=== PATIENT | female | born 1980 | race Caucasian/White ===

== ENCOUNTER 2022-12-26 09:38 | Emergency (ER) | payer MEDICAID, SELFPAY ==
[2022-12-26 09:39] VITALS: BP 134/76; PULSE 89; RESP 16; TEMP 36.9; O2SAT 99; BMI 33.5
--- NOTE | 2022-12-26 09:45 | EXP.UTC ---
Discharge Plan Disposition Patient Disposition: Home, Self-Care Condition: Good Prescriptions Prescriptions: New azithromycin [Zithromax] 250 mg tablet 250 mg PO UD DOSE PK Qty: 6 0RF Rx Instructions: Take two (2) tablets today, then one (1) tablet days #2 thru #5 benzonatate [benzonatate] 100 mg capsule 100 mg PO TIDP PRN (Reason: Cough) Qty: 30 0RF prednisone 10 mg tablet 10 mg PO BID 3 Days Qty: 6 0RF Referrals Follow up/Referrals: Nicci Viera APRN [Primary Care Provider] - See instructions Activity Restrictions/Add. Instructions Additional Instructions/Restrictions: Drink plenty of fluids. Take tylenol or ibuprofen for pain or fever. Take the medications as directed. Follow up with your regular doctor. GO TO THE ER FOR ANY WORSENING SYMPTOMS Clinical Impressions Clinical Impression: Acute viral syndrome, Acute sinusitis Stand Alone Forms Stand Alone Forms: Work/School Release Instructions Patient Instructions: DI for Sinusitis Discharge ED Provider: Chiki Alvarez [facility] General Stated complaint: congestion, ear pain, sore throat Time Seen by Provider: 12/26/22 09:45 History of Present Illness Provider Complaint: She states that she started having sinus congestion, bilateral ear pain, sore throat, body aches and malaise last night. Related Data Previous Rx's Medication Instructions Recorded azithromycin 250 mg tablet 250 mg PO UD DOSE PK #6 tabs 12/26/22 (Zithromax) benzonatate 100 mg capsule 100 mg PO TIDP PRN Cough #30 caps 12/26/22 prednisone 10 mg tablet 10 mg PO BID 3 days #6 tabs 12/26/22 Allergies Allergy/AdvReac Type Severity Reaction Status Date / Time Penicillins Allergy Verified 12/26/22 09:54 [facility] Disclaimer: The information contained in this section may have been updated after the patient was seen, as this information can be updated by other users. Social History Smoking Status: Never smoker alcohol intake: never current occupational status: employed Travel in the last 8 weeks: None ROS Obtained: Yes All systems reviewed & no additional complaints except as documented Constitutional Constitutional: Reports body ache, Denies fever(s) and Reports poor appetite Eyes Eyes: Reports system reviewed and no additional complaints, except as documented ENT Ears, Nose, Mouth, and Throat: Reports as per HPI Cardiovascular Cardiovascular: Reports system reviewed and no additional complaints, except as documented and Denies chest pain Respiratory Respiratory: Denies shortness of breath, Denies chest congestion, Reports cough, Denies stridor and Denies wheezing Gastrointestinal Gastrointestingal: Reports system reviewed and no additional complaints, except as documented; Denies abdominal pain, diarrhea or vomiting Musculoskeletal Musculoskeletal: Reports system reviewed and no additional complaints, except as documented and Denies arthralgias Integumentary/Breasts Skin/Breast: Reports system reviewed and no additional complaints, except as documented and Denies rash Neurologic Neurologic: Denies paresthesias Allergic/Immunologic Allergic/Immunologic: Denies wheezing Physical Exam General General appearance: alert and in no apparent distress Eye Eye exam: Present normal appearance, PERRL and EOMI ENT ENT exam: Present mucous membranes moist and normal external ear exam Expanded ENT Exam External ear exam: Present normal external inspection TM/Canal exam: Bilateral TM: erythema and bulging Nose exam: Absent sinus tenderness Nasal speculum exam: Bilateral: normal Mouth exam: Present normal external inspection; Absent drooling Teeth exam: Present normal inspection Throat exam: Present tonsillar erythema and tonsillomegaly Neck Neck exam: Present normal inspection, full ROM and trachea midline; Absent tenderness, lymphadenopathy or thyromegaly Chest Chest inspection: Present normal inspection and symmetric chest wall ris
[2022-12-26 10:01] LABS: UTC Strep Screen (Rapid) Negative (Negative)
[2022-12-26 10:36] VITALS: BP 134/76; PULSE 89; RESP 16; TEMP 36.9; O2SAT 99
== END 2022-12-26 10:36 | disposition home or self-care (01) ==
PROVIDERS: Emergency Provider Nurse Practitioner Family; PCP Nurse Practitioner Family
DX: J01.90 Acute sinusitis, unspecified (principal); B34.9 Viral infection, unspecified; H92.03 Otalgia, bilateral; R53.81 Other malaise
CPT/HCPCS: 87880; 99204; 99212; G0463

== ENCOUNTER 2023-01-22 09:01 | Emergency (ER) | payer MEDICAID, SELFPAY ==
[2023-01-22 09:01] VITALS: BP 128/82; PULSE 72; RESP 18; TEMP 37; O2SAT 100; BMI 33.7
--- NOTE | 2023-01-22 10:06 | EXP.UTC ---
Discharge Plan Disposition Patient Disposition: Home, Self-Care Referrals Follow up/Referrals: Nicci Viera APRN [Primary Care Provider] - See instructions Activity Restrictions/Add. Instructions Additional Instructions/Restrictions: Drink plenty of fluids. Take tylenol or ibuprofen for pain or fever. Take the medications as directed. Follow up with your regular doctor. GO TO THE ER FOR ANY WORSENING SYMPTOMS Clinical Impressions Clinical Impression: Acute viral syndrome, Exposure to 2019 novel coronavirus Stand Alone Forms Stand Alone Forms: Work/School Release Instructions Patient Instructions: Coronavirus Disease 2019, Preventing the Spread of Coronavirus Discharge Instructions Discharge ED Provider: Chiki Alvarez [facility] General Stated complaint: congestion, covid exposure, runny nose, headache, Time Seen by Provider: 01/22/23 10:06 History of Present Illness Provider Complaint: She states that she has had malaise, body aches, chills, and sinus drainage for the past 1 day. She has been exposed to covid-19. Related Data Allergies Allergy/AdvReac Type Severity Reaction Status Date / Time Penicillins Allergy Verified 01/22/23 10:17 [facility] Disclaimer: The information contained in this section may have been updated after the patient was seen, as this information can be updated by other users. Social History (Updated 12/26/22 @ 10:36 by Chiki Alvarez APRN) Smoking Status: Never smoker alcohol intake: never current occupational status: employed Travel in the last 8 weeks: None ROS Obtained: Yes All systems reviewed & no additional complaints except as documented Constitutional Constitutional: Reports as per HPI Eyes Eyes: Reports system reviewed and no additional complaints, except as documented ENT Ears, Nose, Mouth, and Throat: Reports as per HPI Cardiovascular Cardiovascular: Reports system reviewed and no additional complaints, except as documented and Denies chest pain Respiratory Respiratory: Denies shortness of breath, Denies chest congestion, Reports cough, Denies stridor and Denies wheezing Gastrointestinal Gastrointestingal: Reports system reviewed and no additional complaints, except as documented; Denies abdominal pain, diarrhea or vomiting Musculoskeletal Musculoskeletal: Reports system reviewed and no additional complaints, except as documented and Denies arthralgias Integumentary/Breasts Skin/Breast: Reports system reviewed and no additional complaints, except as documented and Denies rash Neurologic Neurologic: Denies paresthesias Allergic/Immunologic Allergic/Immunologic: Denies wheezing Physical Exam General General appearance: alert and in no apparent distress Head Head exam: atraumatic, normocephalic and normal inspection Eye Eye exam: Present normal appearance, PERRL and EOMI ENT ENT exam: Present normal exam, normal oropharynx, mucous membranes moist, TM's normal bilaterally and normal external ear exam Neck Neck exam: Present normal inspection, full ROM and trachea midline; Absent meningismus or lymphadenopathy Chest Chest inspection: Present normal inspection and symmetric chest wall rise; Absent tenderness Respiratory Respiratory exam: Present normal lung sounds bilaterally; Absent respiratory distress Cardiovascular Cardiovascular exam: Present regular rate and normal rhythm; Absent JVD Abdominal Exam Abdominal exam: Present soft and normal bowel sounds; Absent distention, tenderness or guarding Extremities Exam Extremities exam: Present normal inspection, full ROM and normal capillary refill; Absent calf tenderness Back Exam Back exam: Present normal inspection; Absent tenderness Neurological Exam Neurological exam: Present alert and oriented X3 Psychiatric Psychiatric exam: Present normal affect and normal mood Skin Skin exam: Present warm, dry, intact and normal color Lymphatic Lymphatic Findings: no adenopathy Medical Decision Making Me
[2023-01-22 10:29] VITALS: BP 128/82; PULSE 72; RESP 12; TEMP 37; O2SAT 100
== END 2023-01-22 10:29 | disposition home or self-care (01) ==
PROVIDERS: Emergency Provider Nurse Practitioner Family; PCP Nurse Practitioner Family
DX: R09.81 Nasal congestion (principal); R53.81 Other malaise; R68.83 Chills (without fever); Z20.822 Contact with and (suspected) exposure to COVID-19
CPT/HCPCS: 99212; 99213; G0463

== ENCOUNTER 2023-04-15 12:23 | Emergency (ER) | payer MEDICAID, SELFPAY ==
[2023-04-15 13:20] VITALS: BP 133/85; PULSE 92; RESP 18; TEMP 36.8; O2SAT 99; BMI 35.5
--- NOTE | 2023-04-15 13:21 | EXP.UTC ---
Discharge Plan Disposition Patient Disposition: Home, Self-Care Condition: Good Prescriptions Prescriptions: New benzonatate [benzonatate] 100 mg capsule 100 mg PO TIDP PRN (Reason: Cough) Qty: 30 0RF methylprednisolone 4 mg Tablets,Dose Pack 4 mg PO DIRECTED Qty: 21 0RF cefdinir 300 mg capsule 300 mg PO BID Qty: 20 0RF No Action buprenorphine-naloxone 8-2 mg tablet, sublingual 1 tab SUBLINGUAL DAILY Referrals Follow up/Referrals: Shirin Barroso MD [Primary Care Provider] - See instructions Activity Restrictions/Add. Instructions Additional Instructions/Restrictions: Drink plenty of fluids. Take tylenol or ibuprofen for pain or fever. Take the medications as directed. Follow up with your regular doctor. GO TO THE ER FOR ANY WORSENING SYMPTOMS Clinical Impressions Clinical Impression: Otitis media, Acute viral syndrome, Pharyngitis Stand Alone Forms Stand Alone Forms: Work/School Release Instructions Patient Instructions: DI for Pharyngitis/Tonsillopharyngitis -- Adult, DI for Viral Syndrome Discharge ED Provider: Chiki Alvarez [facility] General Stated complaint: sore throat, sinus drainage, ear pain Time Seen by Provider: 04/15/23 13:21 History of Present Illness Provider Complaint: She states that for the past 2 days she has had sore throat, sinus congestion, ear pain, and low grade fever. 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 Social History Smoking Status: Never smoker alcohol intake: never current occupational status: employed Travel in the last 8 weeks: None ROS Obtained: Yes All systems reviewed & no additional complaints except as documented Constitutional Constitutional: Reports poor appetite Eyes Eyes: Reports system reviewed and no additional complaints, except as documented ENT Ears, Nose, Mouth, and Throat: Reports as per HPI Cardiovascular Cardiovascular: Reports system reviewed and no additional complaints, except as documented and Denies chest pain Respiratory Respiratory: Denies shortness of breath, Denies chest congestion, Reports cough, Denies stridor and Denies wheezing Gastrointestinal Gastrointestingal: Reports system reviewed and no additional complaints, except as documented; Denies abdominal pain, diarrhea or vomiting Musculoskeletal Musculoskeletal: Reports system reviewed and no additional complaints, except as documented and Denies arthralgias Integumentary/Breasts Skin/Breast: Reports system reviewed and no additional complaints, except as documented and Denies rash Neurologic Neurologic: Denies paresthesias Allergic/Immunologic Allergic/Immunologic: Denies wheezing Physical Exam General General appearance: alert and in no apparent distress Head Head exam: atraumatic, normocephalic and normal inspection Eye Eye exam: Present normal appearance, PERRL and EOMI ENT ENT exam: Present mucous membranes moist and normal external ear exam Expanded ENT Exam TM/Canal exam: Bilateral TM: erythema and bulging Nose exam: Absent sinus tenderness Mouth exam: Present normal external inspection; Absent drooling Teeth exam: Present normal inspection Throat exam: Present tonsillar erythema,
[2023-04-15 14:00] VITALS: BP 133/85; PULSE 92; RESP 18; TEMP 36.8; O2SAT 99
== END 2023-04-15 14:00 | disposition home or self-care (01) ==
PROVIDERS: Emergency Provider Nurse Practitioner Family; PCP Family Medicine
DX: U07.1 COVID-19 (principal); J02.9 Acute pharyngitis, unspecified; H66.93 Otitis media, unspecified, bilateral; R09.81 Nasal congestion; R50.9 Fever, unspecified
CPT/HCPCS: 87635; 87880; 99212; 99214; G0463

== ENCOUNTER 2023-05-30 14:39 | Emergency (ER) | payer OTHER, MEDICAID, SELFPAY ==
[2023-05-30 15:25] VITALS: BP 135/91; PULSE 73; RESP 21; TEMP 36.9; O2SAT 99; BMI 31.4
[2023-05-30 15:46] LABS: Apearance,Urine Clear (Clear); Color,Urine Yellow (Yellow)
[2023-05-30 15:47] LABS: Bilirubin,Urine Negative (Negative); Blood, Urine Trace (Negative); Glucose,Urine (UA) Negative (Negative); Ketones,Urine Negative (Negative); Protein,Urine Negative (Negative); UTC Leukocyte Esterase,Urine Negative (Negative); UTC Nitrate,Urine Negative (Negative); Urobilinogen,Urine 0.2 EU/dl (0.2)
[2023-05-30 16:01] VITALS: BP 135/91; PULSE 73; RESP 21; TEMP 36.9; O2SAT 99
--- NOTE | 2023-05-30 16:06 | ED_ITS ---
Discharge Plan Disposition Patient Disposition: Home, Self-Care Condition: Good Prescriptions Prescriptions: New methocarbamol 500 mg tablet 500 mg PO TID PRN (Reason: muscle spasm) Qty: 12 0RF ibuprofen [IBU] 800 mg tablet 800 mg PO TIDP PRN (Reason: Moderate Pain) Qty: 20 0RF No Action buprenorphine-naloxone 8-2 mg tablet, sublingual 1 tab SUBLINGUAL DAILY benzonatate [benzonatate] 100 mg capsule 100 mg PO TIDP PRN (Reason: Cough) Qty: 30 0RF methylprednisolone 4 mg Tablets,Dose Pack 4 mg PO DIRECTED Qty: 21 0RF cefdinir 300 mg capsule 300 mg PO BID Qty: 20 0RF Referrals Follow up/Referrals: Shirin Barroso MD [Primary Care Provider] - See instructions Activity Restrictions/Add. Instructions Additional Instructions/Restrictions: *Ibuprofen fer 8 hours with meal as needed for pain/inflammation *Not additional anti-inflammatory like motrin, aleve, advil with the above amount of ibuprofen. You can still take Tylenol every 4 hours as needed if you need something else for pain *Ice 20 minutes every 2 hours for the first 48 hours after the initial injury followed by moist heat every 20 minutes 3-4 times a day to affected area *Muscle relaxer every 8 hours as needed for muscle spasms but remember, it WILL cause drowsiness You cannot take it and drive, operate machinery or care for small children. *Keep this area active, no movement leads to more stiffness, However take it easy and avoid heavy lifting pushing or pulling *Follow up with you family doctor if no improvement for further treatment Clinical Impressions Clinical Impression: Low back pain Qualifiers: Chronicity: unspecified Back pain laterality: left Sciatica presence: without sciatica Qualified Code(s): M54.50 - Low back pain, unspecified Instructions Patient Instructions: DI for Low Back Pain, DI for Muscle Spasm Discharge ED Provider: Nan Sosa [facility] General Stated complaint: lower back pain Mode of Arrival: Ambulatory Source of Information: Patient Limitations: No Limitations Time Seen by Provider: 05/30/23 16:06 Description of Symptoms (Recalled from Triage Doc. by RN): PATIENT C/O LOWER BACK PAIN THAT STARTED YESTERDAY AND IS WORSE TODAY HEENT Symptoms (Recalled from RN notes): No Resp Symptoms (Recalled from RN notes): No Skin Symptoms (Recalled from RN notes): No MS Symptoms (Recalled from RN notes): Yes Functional Status (Recalled from RN notes): WNL History of Present Illness Provider Complaint: Pt states that she has a bad back and had surgery a few years ago and it has been doing better States that she is not sure if she may have slept wrong or what but she woke up yesterday with achy like feeling in her left lower back States today it was hurting worse and felt like it would spasm up on her and at times would radiate slightly up wanted to get her urine checked to make sure she doesnt have a UTI Denies loss of control of bowel or bladder 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 04/15/23 04/15/23 sublingual tablet Previous Rx's Medication Instructions Recorded benzonatate 100 mg capsule 100 mg PO TIDP PRN Cough #30 caps 04/15/23 cefdinir 300 mg capsule 300 mg PO BID #20 caps 04/15/23 methylprednisolone 4 mg tablets in 4 mg PO DIRECTED #21 tabs 04/15/23 a dose pack ibuprofen 800 mg tablet (IBU) 800 mg PO TIDP PRN Moderate Pain 05/30/23 #20 tabs methocarbamol 500 mg tablet 500 mg PO TID PRN muscle spasm #12 05/30/23 tabs Allergies Allergy/AdvReac Type Severity Reaction Status Date / Time Penicillins Allergy Verified 04/15/23 13:37 Worker's Comp Is this a Worker's Comp case?: No [facility] Disclaimer: The information contained in this section may have been updated after the patient was seen, as this information can be updated by other users. Medical History (Updated 05/30/23 @ 16:19 by Nan Sosa APRN) Back pain Migraine Urinary tract infection Surgical History History of tubal ligation Social History Smoking Status: Never smoker alcohol intake: never current occupational status: employed Travel in the last 8 weeks: None ROS Obtained: Yes All systems reviewed & no additional complaints except as documented and Yes Systems reviewed as appropriate & no additional complaints except as documented Constitutional Constitutional: Reports system reviewed and no additional complaints, except as documented and Reports as per HPI ENT Ears, Nose, Mouth, and Throat: Reports system reviewed and no additional complaints, except as documented and Reports as per HPI Cardiovascular Cardiovascular: Reports system reviewed and no additional complaints, except as documented and Reports as per HPI Respiratory Respiratory: Reports system reviewed and no additional complaints, except as documented and Reports as per HPI Gastrointestinal Gastrointestingal: Reports system reviewed and no additional complaints, except as documented and as per HPI; Denies abdominal pain Musculoskeletal Musculoskeletal: Reports system reviewed and no additional complaints, except as documented, Reports as per HPI and Reports back pain Physical Exam General General appearance: alert and in no apparent distress ENT ENT exam: Present mucous membranes moist Chest Chest inspection: Present normal inspection and symmetric chest wall rise Respiratory Respiratory exam: Present normal lung sounds bilaterally; Absent respiratory distress or wheezes Cardiovascular Cardiovascular exam: Present regular rate, normal rhythm and normal heart sounds Abdominal Exam Abdominal exam: Present soft and normal bowel sounds; Absent distention or tenderness Back Exam Back exam: Present tenderness and muscle spasm Back 1 view image: 1. reports achy spasm like pain that comes and goes since yesterday denies known injury Denies radiation of pain and denies loss of control of bowel or bladder Neurological Exam Neurological exam: Present alert and oriented X3 Medical Decision Making Geoffrey Inquiry Pt receiving controlled substance: No Geoffrey was queried for this patient: No Vital Signs: 05/30/23 15:25 05/30/23 16:01 Temperature 98.4 F 98.4 F Temperature Source Oral Pulse Rate 73 Pulse Rate [Left Brachial] 73 Respiratory Rate 21 21 Blood Pressure 135/91 H Blood Pressure [Left Arm] 135/91 H Blood Pressure Mean [Left Arm] 105 Blood Pressure Source [Left Arm] Automatic Cuff Blood Pressure Position [Left Arm] Sitting 02 Sat by Pulse Oximetry 99 Oxygen Delivery Method Room Air Lab Data Lab results reviewed: Yes I reviewed the patient's lab results. Lab Results 05/30/23 15:38: Urine Color Yellow, Urine Appearance Clear, Urine pH 7.0, Ur Specific [place] 1.020, Urine Protein Negative, Urine Glucose (UA) Negative, Urine Ketones Negative, Urine Blood Trace, Urine Nitrate Negative, Urine Bilirubin Negative, Urine Urobilinogen 0.2, Ur Leukocyte Esterase Negative
[2023-05-30 16:10] LABS: UTC Pregnancy Test, Urine Negative (Negative)
== END 2023-05-30 16:27 | disposition home or self-care (01) ==
PROVIDERS: Emergency Provider Nurse Practitioner; PCP Family Medicine
DX: M54.50 Low back pain, unspecified (principal)
CPT/HCPCS: 81003; 81025; 99212; 99214; G0463

== ENCOUNTER 2023-07-06 08:37 | Emergency (ER) | payer OTHER, MEDICAID, SELFPAY ==
[2023-07-06 08:40] VITALS: BP 139/104; PULSE 99; RESP 16; TEMP 36.6; O2SAT 98; BMI 36.9
--- NOTE | 2023-07-06 08:40 | ED_ITS ---
Discharge Plan Disposition Patient Disposition: Home, Self-Care Chief Complaint: Seizure Prescriptions Prescriptions: No Action buprenorphine-naloxone 8-2 mg tablet, sublingual 1 tab SUBLINGUAL DAILY benzonatate [benzonatate] 100 mg capsule 100 mg PO TIDP PRN (Reason: Cough) Qty: 30 0RF methylprednisolone 4 mg Tablets,Dose Pack 4 mg PO DIRECTED Qty: 21 0RF cefdinir 300 mg capsule 300 mg PO BID Qty: 20 0RF methocarbamol 500 mg tablet 500 mg PO TID PRN (Reason: muscle spasm) Qty: 12 0RF ibuprofen [IBU] 800 mg tablet 800 mg PO TIDP PRN (Reason: Moderate Pain) Qty: 20 0RF Activity Restrictions/Add. Instructions Additional Instructions/Restrictions: At this time it was felt you are safe to be discharged home. If new or worsening symptoms please do not hesitate to return the emergency department. Do not drive for the next 90 days per [facility] guidelines. Please do not put yourself in a situation where having a seizure would be dangerous such as being at high heights, swimming alone, taking a bath alone. Clinical Impressions Clinical Impression: Migraine, Seizure-like activity Instructions Patient Instructions: DI for Seizure Disorder -- Adult, DI for Seizure (Not Epilepsy/Seizure Disorder) Discharge ED Provider: Killian Fonseca General Adult HPI General Chief complaint: Seizure Stated complaint: Seizure Time Seen by Provider: 07/06/23 08:39 History of Present Illness HPI narrative: Patient is a 42-year-old female with past medical history of migraines with a ssociated seizures previously on Topamax who presents to the emergency department for evaluation of seizure-like activity. 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 She took an Imitrex, lowered herself to the ground and had less than 1 minute of generalized tonic-clonic activity, not interactive with the environment, eyes closed per staff report. Since then patient has been slow to arouse however he is conversational. No trauma was sustained. Right now patient states she is having a right-sided headache consistent with her baseline migraines. Her baseline is variable with the occurrences per year, the last one she had of these was approximately 9 months ago. No other acute complaints at this time. 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 04/15/23 04/15/23 sublingual tablet Previous Rx's Medication Instructions Recorded benzonatate 100 mg capsule 100 mg PO TIDP PRN Cough #30 caps 04/15/23 cefdinir 300 mg capsule 300 mg PO BID #20 caps 04/15/23 methylprednisolone 4 mg tablets in 4 mg PO DIRECTED #21 tabs 04/15/23 a dose pack ibuprofen 800 mg tablet (IBU) 800 mg PO TIDP PRN Moderate Pain 05/30/23 #20 tabs methocarbamol 500 mg tablet 500 mg PO TID PRN muscle spasm #12 05/30/23 tabs Allergies Allergy/AdvReac Type Severity Reaction Status Date / Time Penicillins Allergy Verified 07/06/23 08:55 topiramate [From Topamax] Allergy Verified 07/06/23 08:55 [facility] Disclaimer: The information contained in this section may have been updated after the patient was seen, as this information can be updated by other users. Medical History (Updated 07/06/23 @ 09:24 by Killian Fonseca MD) Back pain Migraine Urinary tract infection Surgical History History of tubal ligation Social History Smoking Status: Current every day smoker alcohol intake: never current occupational status: employed Travel in the last 8 weeks: None ROS Obtained: Yes Systems reviewed as appropriate & no additional complaints except as documented Physical Exam General General appearance: alert and other (Tearful) Head Head exam: atraumatic and normocephalic Eye Eye exam: Present PERRL, EOMI and other (Photophobia) ENT ENT exam: Present mucous membranes moist Neck Neck exam: Present normal inspection Chest Chest inspection: Present normal inspection and symmetric chest wall rise Respiratory Respiratory exam: Present normal lung sounds bilaterally; Absent respiratory distress Cardiovascular Cardiovascular exam: Present regular rate and normal rhythm Abdominal Exam Abdominal exam: Present soft; Absent tenderness Extremities Exam Extremities exam: Present normal inspection Neurological Exam Neurological exam: Present alert and CN II-XII intact; Absent motor sensory deficit Psychiatric Psychiatric exam: Present normal affect Skin Skin exam: Present warm and dry Medical Decision Making Geoffrey Inquiry Pt receiving controlled substance: No Vital Signs: 07/06/23 08:40 Temperature 98 F Temperature Source Oral Pulse Rate [Right] 99 H Respiratory Rate 16 Blood Pressure [Right Arm] 139/104 H Blood Pressure Mean [Right Arm] 115 02 Sat by Pulse Oximetry 98 Oxygen Delivery Method Room Air Lab Data Lab Results 07/06/23 08:35: WBC 6.4, RBC 4.46, Hgb 14.4, Hct 40.9, MCV 91.9, MCH 32.3 H, MCHC 35.2, RDW 12.9, Plt Count 280, MPV 7.6, Neut % (Auto) 41.3, Lymph % (Auto) 49.5, [place] % (Auto) 4.4, Eos % (Auto) 4.0, Baso % (Auto) 0.8, Neut # (Auto) 2.7, Lymph # (Auto) 3.2, [place] # (Auto) 0.3, Eos # (Auto) 0.3, Baso # (Auto) 0.1, Sodium 136, Potassium 3.7, Chloride 105, Carbon Dioxide 33 H, Anion Gap 1.7 L, BUN 12, Creatinine 1.10 H, Estimated Creat Clear 92, Estimated GFR 55 L, Est GFR ( Amer) 67, Glucose 106 H, Calcium 8.5, Magnesium 2.0, Total Bilirubin 0.3, AST 33, ALT 25, Alkaline Phosphatase 74, Total Protein 6.4, Albumin 3.6, Globulin 2.8, Albumin/Globulin Ratio 1.3, Serum HCG, Qual Negative 07/06/23 08:35 07/06/23 08:35 Orders (Tests/Meds): ED MEDICATIONS Generic Name Dose Route Start Last Admin Trade Name Freq PRN Reason Stop Dose Admin Lactated Ringer's 1,000 mls @ 999 mls/hr 07/06/23 08:39 07/06/23 08:56 Lactated Ringer's 1000 Ml Bag IV 07/06/23 09:39 999 mls/hr .Q1H1M ONE Administration Discontinued Medications Generic Name Dose Route Start Last Admin Trade Name Freq PRN Reason Stop Dose Admin Acetaminophen 1,000 mg 07/06/23 08:39 07/06/23 08:55 Acetaminophen 1,000mg/100ml Vial IV 07/06/23 08:40 1,000 mg ONCE ONE Administration Diphenhydramine HCl 25 mg 07/06/23 08:39 07/06/23 08:55 Diphenhydramine 50mg/Ml Vial IV 07/06/23 08:40 25 mg ONCE ONE Administration Prochlorperazine Edisylate 5 mg 07/06/23 08:39 07/06/23 08:55 Prochlorperazine 10mg/2ml Vial IV 07/06/23 08:40 5 mg ONCE ONE Administration ORDERS Category Date Time Status CBC w/Auto Diff [Complete Blood Count Auto Diff] Stat Lab 07/06/23 08:35 Completed CMP [Comprehensive Metabolic Panel] Stat Lab 07/06/23 08:35 Completed HCG Qualitative, Serum Stat Lab 07/06/23 08:35 Completed MG [Magnesium] Stat Lab 07/06/23 08:35 Completed EKG Request [ECG Request] Stat Y 07/06/23 08:39 Ordered ECG Data Tracing #1: Independently interpreted by me, rate is 84, rhythm is regular, axis is normal, no ST elevation in anatomical contiguous leads, QTc 392, no high degree AV block, no delta wave. Medical Decision Narrative: In summary patient is a 42-year-old female past medical history described above presents emergency department for evaluation of seizure-like activity. Patient is hemodynamically stable and nontoxic-appearing upon arrival, afebrile with a nonfocal neurologic exam. Patient does have a right-sided headache and photophobia consistent with her baseline migraines. Differential diagnosis includes complex migraine, seizure, syncope with myoclonic jerks, among others. Workup will be conducted with hematologic labs, hCG, EKG. Initial interventions include crystalloid bolus, Compazine, diphenhydramine, IV Tylenol. Intracranial imaging was considered however given that these are consistent with patient's baseline seizure-like activity associated with migraine head no dynamic changes with a nonfocal neurologic exam currently will be deferred. Workup reviewed by me, hematologic labs are nonactionable. Upon repeat evaluation patient had significant improvement of headache, persistent nonfocal neurologic exam. Given this patient is appropriate for discharge at this time. Critical Care Critical Care Time Critical Care Time: No
--- NOTE | 2023-07-06 08:40 | ECG_ITS ---
APPROVED REPORT Exam: Resting ECG HR:84 bpm ECG Measurements Heart Rate 84 AXES VT 153 P 66 QRSd 88 QRS 81 QT 352 T 12 QTc 392 Conclusion SINUS RHYTHM MINIMAL ST DEPRESSION [0.025+ mV ST DEPRESSION] BORDERLINE ECG UNCONFIRMED REPORT Electronically signed by : Mauri Palomo MD 07/07/2023 07:48:01
[2023-07-06 08:52] LABS: Chloride 105 mmol/L (98-107)
[2023-07-06 08:53] VITALS: BP 153/99; PULSE 88; O2SAT 100
[2023-07-06 08:53] LABS: Basophils # 0.1 K/mm3 (0-0.2); Basophils % 0.8 % (0.1-2.0); Eosinophils # 0.3 K/mm3 (0.0-0.4); Hematocrit 40.9 % (37.0-47.0); Hemoglobin 14.4 g/dL (12.2-16.2); Lymphocytes # 3.2 K/mm3 (0.7-4.5); Lymphocytes % 49.5 % (10-50); Mean Corpuscular HGB Conc 35.2 g/dL (31.8-35.4); Mean Corpuscular Hemoglobin 32.3 pg (27.0-31.2); Mean Corpuscular Volume 91.9 fl (81-99); Mean Platelet Volume 7.6 fl (7.4-10.4); Monocytes # 0.3 K/mm3 (0.1-1.0); Monocytes % 4.4 % (1.7-9.3); Neutrophils # 2.7 K/mm3 (1.8-7.8); Neutrophils % 41.3 % (37.0-80.0); Platelet Count 280 K/mm3 (142-424); Potassium 3.7 mmoL/L (3.5-5.1); Red Blood Count 4.46 M/mm3 (4.20-5.40); Red Cell Distribution Width 12.9 % (11.5-17.5); Sodium 136 mmol/L (136-145); White Blood Count 6.4 K/mm3 (4.8-10.8)
[2023-07-06 08:55] LABS: Alanine Aminotransferase 25 U/L (12-78); Alkaline Phosphatase 74 U/L (38-126); Anion Gap 1.7 mEq/L (5-15); Aspartate Amino Transferase 33 U/L (14-36); Bilirubin,Total 0.3 mg/dl (0.2-1.3); Blood Urea Nitrogen 12 mg/dl (7-17); Carbon Dioxide 33 mmol/L (22.0-30.0); Creatinine Clearance Estimated 92 mL/min (50-200); Estimated Glomerular Filt Rate 55 ml/min (>60); GFR (African American) 67 ML/MIN (>60)
[2023-07-06] MEDS: PROCHLORPERAZINE 10MG/2ML VIAL 5 MG IV (08:55)
[2023-07-06] MEDS: diphenhydrAMINE 50MG/ML VIAL 25 MG IV (08:55)
[2023-07-06] MEDS: ACETAMINOPHEN 1,000MG/100ML VIAL 1000 MG IV (08:55)
[2023-07-06 08:56] LABS: Albumin Level 3.6 g/dl (3.5-5.0); Albumin/Globulin Ratio 1.3 (1.1-1.8); Calcium 8.5 mg/dl (8.4-10.2); Globulin 2.8 g/dL (1.3-3.2); Glucose 106 mg/dl (74-100); Total Protein,Serum 6.4 g/dl (6.3-8.2)
[2023-07-06] MEDS: LACTATED RINGERS 1000ML 1,000 ML 999 ML IV (08:56)
[2023-07-06 09:00] VITALS: BP 131/91; PULSE 79; O2SAT 100
[2023-07-06 09:07] LABS: HCG Qualitative, Serum Negative (Negative)
[2023-07-06 09:20] VITALS: BP 154/96; PULSE 65; O2SAT 100
--- NOTE | 2023-07-06 09:21 | PC.NURSE ---
pt H/A feeling much better fluids infusing
--- NOTE | 2023-07-06 09:30 | PC.NURSE ---
pt is finding a ride home
--- NOTE | 2023-07-06 09:43 | PC.NURSE ---
When rounding on the pt, her IV fluids were finished. Pt states she is feeling better. pt has no new complaints at this time.
[2023-07-06 09:57] VITALS: BP 148/96; PULSE 66; RESP 16; TEMP 36.6
== END 2023-07-06 09:58 | disposition home or self-care (01) ==
PROVIDERS: Emergency Provider Emergency Medicine; PCP Family Medicine
DX: G43.909 Migraine, unspecified, not intractable, without status migrainosus (principal); R56.9 Unspecified convulsions; F17.210 Nicotine dependence, cigarettes, uncomplicated
CPT/HCPCS: 80053; 83735; 84703; 85025; 93005; 96361; 96374; 96375; 99285; J0131

== ENCOUNTER 2024-02-15 13:08 | Emergency (ER) | payer OTHER, MEDICAID, SELFPAY ==
[2024-02-15 14:02] VITALS: BP 125/84; PULSE 84; RESP 20; TEMP 36.6; O2SAT 100; BMI 37.0
[2024-02-15 14:36] LABS: Microscopic, Urine URINE MICROSCOPIC (MICROSCOPIC)
[2024-02-15 14:38] LABS: Appearance,Urine CLEAR (Clear); Bilirubin,Urine Negative (Negative); Blood, Urine Negative (Negative); Color,Urine YELLOW (Yellow); Glucose,Urine (UA) Negative (Negative); Ketones,Urine Negative (Negative); Leukocyte Esterase,Urine Negative (Negative); Nitrate,Urine Negative (Negative); Protein,Urine Negative (Negative); Specific Gravity, Urine 1.025 (1.005-1.030); Urobilinogen,Urine 0.2 EU/dl (0.2)
[2024-02-15 14:47] LABS: Bacteria,Urine Trace /lpf; Squamous Epithelial Cell,Urine Occasional #/hpf (0-5); WBC,Urine Occasional #/hpf (0-3)
--- NOTE | 2024-02-15 14:52 | ED_ITS ---
Discharge Plan Disposition Patient Disposition: Home, Self-Care Condition: Good Prescriptions Prescriptions: New ciprofloxacin HCl [Cipro] 500 mg tablet 500 mg PO BID 5 Days Qty: 10 0RF No Action buprenorphine-naloxone 8-2 mg tablet, sublingual 1 tab SUBLINGUAL DAILY benzonatate [benzonatate] 100 mg capsule 100 mg PO TIDP PRN (Reason: Cough) Qty: 30 0RF methylprednisolone 4 mg Tablets,Dose Pack 4 mg PO DIRECTED Qty: 21 0RF cefdinir 300 mg capsule 300 mg PO BID Qty: 20 0RF methocarbamol 500 mg tablet 500 mg PO TID PRN (Reason: muscle spasm) Qty: 12 0RF ibuprofen [IBU] 800 mg tablet 800 mg PO TIDP PRN (Reason: Moderate Pain) Qty: 20 0RF Referrals Follow up/Referrals: Provider,Referral, MD [Primary Care Provider] - See instructions Clinical Impressions Clinical Impression: UTI (urinary tract infection) Qualifiers: Urinary tract infection type: acute cystitis Hematuria presence: without hematuria Qualified Code(s): N30.00 - Acute cystitis without hematuria Instructions Patient Instructions: DI for Urinary Tract Infection (UTI) Print Language Print Language: Yakut Discharge ED Provider: Ina Martinez [facility] [place] HPI General Stated complaint: left side pain, body aches and chills Mode of Arrival: Ambulatory Source of Information: Patient Limitations: No Limitations Time Seen by Provider: 02/15/24 14:44 Description of Symptoms (Recalled from Triage Doc. by RN): Reports pain on the left side of her back, lower stomach pain and body aches. HEENT Symptoms (Recalled from RN notes): No Resp Symptoms (Recalled from RN notes): No Skin Symptoms (Recalled from RN notes): No MS Symptoms (Recalled from RN notes): No Functional Status (Recalled from RN notes): wnl History of Present Illness Provider Complaint: Pt complains of occasional burning with urination, left flank pain, lower abdominal pain, and body aches. Pt states that the left flank pain started a couple weeks ago and her burning and belly pain started yesterday. She denies taking anything for her symptoms. 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 04/15/23 04/15/23 sublingual tablet Previous Rx's ?Medication ?Instructions ?Recorded benzonatate 100 mg capsule 100 mg PO TIDP PRN Cough #30 caps 04/15/23 cefdinir 300 mg capsule 300 mg PO BID #20 caps 04/15/23 methylprednisolone 4 mg tablets in 4 mg PO DIRECTED #21 tabs 04/15/23 a dose pack ibuprofen 800 mg tablet (IBU) 800 mg PO TIDP PRN Moderate Pain 05/30/23 #20 tabs methocarbamol 500 mg tablet 500 mg PO TID PRN muscle spasm #12 05/30/23 tabs ciprofloxacin HCl 500 mg tablet 500 mg PO BID 5 days #10 tabs 02/15/24 (Cipro) Allergies Allergy/AdvReac Type Severity Reaction Status Date / Time Penicillins Allergy Verified 07/06/23 08:55 topiramate [From Topamax] Allergy Verified 07/06/23 08:55 Worker's Comp Is this a Worker's Comp case?: No [facility] Disclaimer: The information contained in this section may have been updated after the patient was seen, as this information can be updated by other users. Medical History (Updated 02/15/24 @ 15:03 by Ina Martinez APRN) Back pain Urinary tract infection Migraine Surgical History History of tubal ligation Social History Smoking Status: Current every day smoker alcohol intake: never current occupational status: employed Travel in the last 8 weeks: None ROS Obtained: Yes All systems reviewed & no additional complaints except as documented Constitutional Constitutional: Reports system reviewed and no additional complaints, except as documented, Reports body ache, Reports chills and Reports malaise Eyes Eyes: Reports system reviewed and no additional complaints, except as documented ENT Ears, Nose, Mouth, and Throat: Reports system reviewed and no additional complaints, except as documented Cardiovascular Cardiovascular: Reports system reviewed and no additional complaints, except as documented Respiratory Respiratory: Reports system reviewed and no additional complaints, except as documented Gastrointestinal Gastrointestingal: Reports system reviewed and no additional complaints, except as documented Genitourinary Female Genitourinary: Reports system reviewed and no additional complaints, except as documented, Reports dysuria, Reports flank pain and Reports urinary frequency Musculoskeletal Musculoskeletal: Reports system reviewed and no additional complaints, except as documented Integumentary/Breasts Skin/Breast: Reports system reviewed and no additional complaints, except as documented Neurologic Neurologic: Reports system reviewed and no additional complaints, except as documented Endocrine Endocrine: Reports system reviewed and no additional complaints, except as documented Hematologic/Lymphatic Henatologic/Lymphatic: Reports system reviewed and no additional complaints, except as documented Allergic/Immunologic Allergic/Immunologic: Reports system reviewed and no additional complaints, except as documented Physical Exam General General appearance: alert and in no apparent distress Head Head exam: atraumatic and normocephalic Eye Eye exam: Present normal appearance ENT ENT exam: Present normal exam and mucous membranes moist Neck Neck exam: Present normal inspection; Absent lymphadenopathy Chest Chest inspection: Present normal inspection and symmetric chest wall rise Respiratory Respiratory exam: Present normal lung sounds bilaterally Cardiovascular Cardiovascular exam: Present regular rate, normal rhythm and normal heart sounds Abdominal Exam Abdominal exam: Present tenderness Abdominal tenderness: Present suprapubic Extremities Exam Extremities exam: Present normal inspection Back Exam Back exam: Present CVA tenderness (L); Absent CVA tenderness (R) Neurological Exam Neurological exam: Present alert and oriented X3 Psychiatric Psychiatric exam: Present normal affect and normal mood Skin Skin exam: Present warm, dry and intact Lymphatic Lymphatic Findings: no adenopathy Medical Decision Making Medical Records Screening: Per USPSTF and CDC recommendations, given the prevalence of disease in our region, it is our hospital?s policy to screen for HIV and viral Hepatitis for all patients aged 18 and over and those with ongoing risk factors. Geoffrey Inquiry Pt receiving controlled substance: No Geoffrey was queried for this patient: No Vital Signs: 02/15/24 14:02 Temperature 97.9 F Temperature Source Oral Pulse Rate [Radial] 84 Respiratory Rate 20 Blood Pressure [Right Arm] 125/84 Blood Pressure Mean [Right Arm] 97 Blood Pressure Source [Right Arm] Automatic Cuff Blood Pressure Position [Right Arm] Sitting 02 Sat by Pulse Oximetry 100 Oxygen Delivery Method Room Air Lab Data Lab Results 02/15/24 14:00: Urine Color Yellow, Urine Appearance Clear, Urine pH 7.0, Ur Specific [place] 1.025, Urine Protein Negative, Urine Glucose (UA) Negative, Urine Ketones Negative, Urine Blood Negative, Urine Nitrate Negative, Urine Bilirubin Negative, Urine Urobilinogen 0.2, Ur Leukocyte Esterase Negative, Urine RBC None, Urine WBC Occasional, Ur Squamous Epith Cells Occasional, Urine Bacteria Trace Orders (Tests/Meds): ORDERS Category Date Time Status UA [Urinalysis and Microscopic] Stat Lab 02/15/24 14:00 Completed
[2024-02-15 15:10] VITALS: BP 125/84; PULSE 84; RESP 20; TEMP 36.6; O2SAT 100
== END 2024-02-15 15:10 | disposition home or self-care (01) ==
PROVIDERS: Emergency Provider Nurse Practitioner Family
DX: N39.0 Urinary tract infection, site not specified (principal); M54.59 Other low back pain; R10.32 Left lower quadrant pain; R30.0 Dysuria
CPT/HCPCS: 81001; 99212; 99214; G0463

== ENCOUNTER 2024-05-04 15:07 | Emergency (ER) | payer OTHER, SELFPAY ==
[2024-05-04 15:20] VITALS: BP 106/72; PULSE 84; RESP 18; TEMP 36.7; O2SAT 98; BMI 35.2
--- NOTE | 2024-05-04 15:32 | ED_ITS ---
Discharge Plan Disposition Patient Disposition: Home, Self-Care Condition: Good Prescriptions Prescriptions: New ondansetron 4 mg tablet,disintegrating 4 mg PO Q8H PRN (Reason: nausea and vomiting) Qty: 10 0RF Referrals Follow up/Referrals: Provider,Referral, MD [Primary Care Provider] - See instructions Activity Restrictions/Add. Instructions Additional Instructions/Restrictions: Drink extra fluids with and between meals. If you have difficulty drinking, try very small amounts of water or suck on ice chips. ? Avoid fruit juices, as these do not replace minerals and can actually increase diarrhea. ? Children and adults can use sports drinks to replenish electrolytes. Younger children and infants should use products formulated for children, like oral rehydration solutions. ? Eat food in small amounts and let your stomach recover. ? Get lots of rest. You may feel tired or weak. ? No greasy or fried foods for the next 24-48 hours BRAT diet Bananas Rice Apples and [place] ? Make sure to drink plenty of liquids ? Return if needed ? Straight to ER if any life threatening symptoms ? Zofran as prescribed ? Follow up with family doctor in the next 48-72 hours if no improvement or any worsening of symptoms Clinical Impressions Clinical Impression: Nausea & vomiting Stand Alone Forms Stand Alone Forms: Work/School Release Instructions Patient Instructions: Nausea and Vomiting-Adult, Ondansetron Print Language Print Language: [place] Discharge ED Provider: Nan Sosa [facility] [place] HPI General Stated complaint: fever, vomiting, AVENDANO Mode of Arrival: Ambulatory Source of Information: Patient Limitations: No Limitations Time Seen by Provider: 05/04/24 15:35 Description of Symptoms (Recalled from Triage Doc. by RN): PATIENT C/O VOMITING, HEADACHE, BODY ACHES, AND WEAKNESS THAT STARTED THIS MORNING HEENT Symptoms (Recalled from RN notes): Yes Resp Symptoms (Recalled from RN notes): No Skin Symptoms (Recalled from RN notes): No MS Symptoms (Recalled from RN notes): No Functional Status (Recalled from RN notes): WNL History of Present Illness Provider Complaint: Patient states that she started feeling bad this morning States that she has been having N/V body aches, chills and low grade fever States this evening she isnt feeling any better so she came in to get checked Related Data Previous Rx's ?Medication ?Instructions ?Recorded ondansetron 4 mg disintegrating 4 mg PO Q8H PRN nausea and 05/04/24 tablet vomiting #10 tabs Allergies Allergy/AdvReac Type Severity Reaction Status Date / Time Penicillins Allergy Verified 07/06/23 08:55 topiramate (From Topamax) Allergy Verified 07/06/23 08:55 Worker's Comp Is this a Worker's Comp case?: No [facility] Disclaimer: The information contained in this section may have been updated after the patient was seen, as this information can be updated by other users. Medical History (Updated 05/04/24 @ 15:48 by Nan Sosa APRN) Back pain Urinary tract infection Migraine Surgical History History of tubal ligation Social History Smoking Status: Current every day smoker alcohol intake: never current occupational status: employed Travel in the last 8 weeks: None Have you lived/traveled outside [place] in past 30 days?: No Contact w/someone who lives/traveled outside US past 30 days?: No Exposure to someone with infectious disease in past 14 days?: No Do you have a fever (greater than 100.4 F or 38 C)?: No Have you tested positive for COVID-19: No Exposed to someone with COVID-19 in past 14 days?: No Do you have a sore throat?: No Do you have a cough?: No Do you have any weakness?: No Do you have any diarrhea?: No Are you experiencing any unusual bleeding?: No Do you have any muscle aches/pain?: No Do you have any abdominal pain?: No Are you experiencing loss of taste or smell?: No ROS Obtained: Yes All systems reviewed & no additional complaints except as documented and Yes Systems reviewed as appropriate & no additional complaints except as documented Constitutional Constitutional: Reports system reviewed and no additional complaints, except as documented, Reports as per HPI, Reports body ache, Reports chills, Reports fever(s) and Reports headache(s) ENT Ears, Nose, Mouth, and Throat: Reports system reviewed and no additional complaints, except as documented, Reports as per HPI and Reports headache(s) Cardiovascular Cardiovascular: Reports system reviewed and no additional complaints, except as documented and Reports as per HPI Respiratory Respiratory: Reports system reviewed and no additional complaints, except as documented and Reports as per HPI Gastrointestinal Gastrointestingal: Reports system reviewed and no additional complaints, except as documented, as per HPI, nausea and vomiting; Denies abdominal pain Genitourinary Female Genitourinary: Reports system reviewed and no additional complaints, except as documented and Reports as per HPI Neurologic Neurologic: Reports headache(s) Physical Exam General General appearance: alert and in no apparent distress ENT ENT exam: Present mucous membranes moist Respiratory Respiratory exam: Present normal lung sounds bilaterally; Absent respiratory distress or wheezes Cardiovascular Cardiovascular exam: Present regular rate, normal rhythm and normal heart sounds Abdominal Exam Abdominal exam: Present soft and normal bowel sounds; Absent distention or tenderness Neurological Exam Neurological exam: Present alert, oriented X3 and normal gait Medical Decision Making Medical Records Screening: Per USPSTF and CDC recommendations, given the prevalence of disease in our region, it is our hospital?s policy to screen for HIV and viral Hepatitis for all patients aged 18 and over and those with ongoing risk factors. Geoffrey Inquiry Pt receiving controlled substance: No Geoffrey was queried for this patient: No Vital Signs: 05/04/24 15:20 Temperature 98.0 F Temperature Source Oral Pulse Rate [Left Brachial] 84 Respiratory Rate 18 Blood Pressure [Left Arm] 106/72 L Blood Pressure Mean [Left Arm] 83 Blood Pressure Source [Left Arm] Automatic Cuff Blood Pressure Position [Left Arm] Sitting 02 Sat by Pulse Oximetry 98 Oxygen Delivery Method Room Air Lab Data Lab results reviewed: Yes I reviewed the patient's lab results.
[2024-05-04 15:49] VITALS: BP 106/72; PULSE 84; RESP 18; TEMP 36.7; O2SAT 98
[2024-05-04 15:51] LABS: UTC Influenza A Antigen Negative (Negative); UTC Influenza B Antigen Negative (Negative); UTC Strep Screen (Rapid) Negative (Negative)
--- NOTE | 2024-05-08 10:32 | PC.NURSE ---
Wolf COREY APRN REVIEWED PATIENT'S POSITIVE STREP CONFIRMATION AND SENT IN CEFDINIR. PATIENT NOTIFIED OF ANTIBIOTIC BY Wolf COREY APRN AT THIS TIME
== END 2024-05-04 15:55 | disposition home or self-care (01) ==
PROVIDERS: Emergency Provider Nurse Practitioner
DX: R11.2 Nausea with vomiting, unspecified (principal)
CPT/HCPCS: 87804; 87880; 99213; G0381

== ENCOUNTER 2024-07-14 12:46 | Emergency (ER) | payer OTHER, SELFPAY ==
[2024-07-14 12:47] VITALS: BP 135/82; PULSE 87; RESP 16; TEMP 37; O2SAT 97; BMI 37.5
[2024-07-14 12:50] VITALS: BP 135/82; PULSE 90; O2SAT 96
--- NOTE | 2024-07-14 13:03 | XR_ITS ---
FINAL REPORT TECHNIQUE: Pelvis single view CLINICAL HISTORY: Fall, right pelvic pain COMPARISON: None FINDINGS: PELVIS: A single view of the pelvis was obtained. The bony pelvis is unremarkable, without evidence of fracture or dislocation. There are tubal ligation clips in the pelvis. IMPRESSION: No acute bony abnormality identified. Reviewed, Interpreted and Dictated by Avinash Nieto MD Transcribed by Marilu Connolly Authenticated and . [facility]
--- NOTE | 2024-07-14 13:03 | CT_ITS ---
FINAL REPORT CLINICAL HISTORY: Fall, lumbar spine pain COMPARISON: None FINDINGS: CT LUMBAR SPINE TECHNIQUE: Thin section axial CT with sagittal and coronal reconstructions This study was performed with techniques to keep radiation doses as low as reasonably achievable, (ALARA). Individualized dose reduction techniques using automated exposure control or adjustment of mA and/or kV according to the patient's size were employed. FINDINGS: No fracture is present. Alignment is normal. No bony canal stenosis is seen. Mild diffuse degenerative disc disease is present. IMPRESSION: Mild degenerative change, without acute bony abnormality. This study was performed using automated techniques to achieve radiation exposure as low as reasonably achievable Reviewed, Interpreted and Dictated by Avinash Nieto MD Transcribed by Marilu Connolly Authenticated and [facility]
--- NOTE | 2024-07-14 13:04 | HMH.EDGENADL ---
Discharge Plan Disposition Patient Disposition: Home, Self-Care Condition: Good Prescriptions Prescriptions: New methocarbamol 500 mg tablet 500 mg PO Q6H Qty: 120 0RF lidocaine 5 % adhesive patch,medicated 1 patch topical DAILY Qty: 15 0RF Rx Instructions: leave on most painful area for up to 12 hrs Referrals Follow up/Referrals: Ivis Serrano APRN [Primary Care Provider] - See instructions Activity Restrictions/Add. Instructions Additional Instructions/Restrictions: Follow-up with your primary care physician if symptoms do not improve. Use the physical therapy exercises that you learned previously at home. If you decide that you do 1 physical therapy, contact your primary care physician and they can set you up. You can take Tylenol, ibuprofen, Robaxin and lidocaine patches to help with your symptoms. Continue to move and do not lie still while awake for long periods of time as this can make your symptoms worse. If you develop any new or worsening symptoms, such as urinating on yourself, losing control of your bowels, numbness/tingling in your genital area, weakness of 1 or both of your legs, return to the emergency department for evaluation. Clinical Impressions Clinical Impression: Fall, Low back pain Instructions Patient Instructions: DI for Low Back Pain Print Language Print Language: Citizen Of [place] Discharge ED Provider: Brendan Francis General Adult HPI General Chief complaint: Back Pain/Injury Stated complaint: AO 07/13 lower back pain, shooting pain into legs Time Seen by Provider: 07/14/24 12:52 Mode of Arrival: Ambulatory Source of Information: Patient Limitations: No Limitations Description of Symptoms (Recalled from ER Triage Doc. by RN): Reports falling yesterday and thinks she may have irritated her lower back. Does report having surgery on her back approx 3 years ago. History of Present Illness HPI narrative: Lissy Graham is a 43F with a past medical history of lumbar spine laminectomy 3 years ago, bipolar disorder who presents to the emergency department for complaints of lower back pain after a fall. Patient states that yesterday she was walking her dog when she slipped and fell, landing on her right hip. Since then, she has been ambulatory but is had worsening pain in her midline lower back and right lower back that radiates down to her right hip. She denies any head trauma or loss of consciousness. She states that she was prescribed gabapentin 2 weeks ago for left-sided sciatica pain and has been taking that but it has not been helping. She took Tylenol today that did not seem to help. She is worried with her back surgery that that could have caused issues. She denies any genital/perianal numbness, urinary incontinence or retention, fecal incontinence or retention, weakness or numbness of the extremities. Related Data Previous Rx's ?Medication ?Instructions ?Recorded lidocaine 5 % topical patch 1 patch topical DAILY #15 ea 07/14/24 methocarbamol 500 mg tablet 500 mg PO Q6H #120 tabs 07/14/24 Allergies Allergy/AdvReac Type Severity Reaction Status Date / Time Penicillins Allergy Verified 07/06/23 08:55 topiramate (From Topamax) Allergy Verified 07/06/23 08:[facility] Disclaimer: The information contained in this section may have been updated after the patient was seen, as this information can be updated by other users. Medical History (Updated 07/14/24 @ 14:50 by Brendan Francis MD) Back pain Urinary tract infection Migraine Surgical History History of tubal ligation Social History Smoking Status: Current every day smoker alcohol intake: never current occupational status: employed Travel in the last 8 weeks: None Have you lived/traveled outside US in past 30 days?: No Contact w/someone who lives/traveled outside US past 30 days?: No Exposure to someone with infectious disease in past 14 days?: No Do you have a fever (greater than 100.4 F or 38 C)?: No Have you tested positive for COVID-19: No Exposed to someone with COVID-19 in past 14 days?: No Do you have a sore throat?: No Do you have a cough?: No Do you have any weakness?: No Do you have any diarrhea?: No Are you experiencing any unusual bleeding?: No Do you have any muscle aches/pain?: Yes Do you have any abdominal pain?: No Are you experiencing loss of taste or smell?: No ROS Obtained: Yes Systems reviewed as appropriate & no additional complaints except as documented Physical Exam General General appearance: alert and in no apparent distress Comment: Appears uncomfortable Head Head exam: atraumatic Eye Eye exam: Present normal appearance ENT ENT exam: Present normal external ear exam Neck Neck exam: Present full ROM Chest Chest inspection: Present symmetric chest wall rise Respiratory Respiratory exam: Present normal lung sounds bilaterally; Absent respiratory distress Cardiovascular Cardiovascular exam: Present regular rate and normal rhythm Abdominal Exam Abdominal exam: Present soft; Absent tenderness or guarding Extremities Exam Extremities exam: Present normal inspection Back Exam Back exam: Present normal inspection and tenderness (Midline lumbar spine tenderness without step-off or deformity. Tenderness to palpation over the right iliac crest ridge/lumbar paraspinal musculature. Positive straight leg raise on the right) Neurological Exam Neurological exam: Present alert and oriented X3 Psychiatric Psychiatric exam: Present normal affect Skin Skin exam: Present warm and dry Medical Decision Making Medical Records Screening: Per USPSTF and CDC recommendations, given the prevalence of disease in our region, it is our hospital?s policy to screen for HIV and viral Hepatitis for all patients aged 18 and over and those with ongoing risk factors. Geoffrey Inquiry Pt receiving controlled substance: No Vital Signs: 07/14/24 12:47 07/14/24 12:50 Temperature 98.6 F Temperature Source Oral Pulse Rate 90 Pulse Rate [Radial] 87 Respiratory Rate 16 Blood Pressure 135/82 Blood Pressure [Right Arm] 135/82 Blood Pressure Mean [Right Arm] 99 Blood Pressure Source [Right Arm] Automatic Cuff Blood Pressure Position [Right Arm] Sitting 02 Sat by Pulse Oximetry 97 96 Oxygen Delivery Method Room Air Room Air Lab Data Lab Results 07/14/24 13:20: Urine Color Yellow, Urine Appearance Clear, Urine pH 6.5, Ur Specific [place] 1.020, Urine Protein Negative, Urine Glucose (UA) Negative, Urine Ketones Negative, Urine Blood Negative, Urine Nitrate Negative, Urine Bilirubin Negative, Urine Urobilinogen 0.2, Ur Leukocyte Esterase Negative, Urine RBC None, Urine WBC Occasional, Ur Squamous Epith Cells 3-5, Urine Bacteria Trace Orders (Tests/Meds): ED MEDICATIONS Discontinued Medications Generic Name Dose Route Start Last Admin Trade Name Loc PRN Reason Stop Dose Admin Ibuprofen 600 mg 07/14/24 13:01 07/14/24 13:06 Ibuprofen 600 Mg Tablet PO 07/14/24 13:02 600 mg ONCE ONE Administration Lidocaine 1 each 07/14/24 13:01 07/14/24 13:07 Lidocaine 5% Transdermal Patch TP 07/14/24 13:02 1 each ONCE ONE Administration Methocarbamol 1,000 mg 07/14/24 13:02 07/14/24 13:06 Methocarbamol 500mg Tablet PO 07/14/24 13:03 1,000 mg ONCE ONE Administration ORDERS Category Date Time Status CT lumbar spine wo con Stat Cat Scan 07/14/24 13:03 Completed Pelvis XR 1-2 views [XR pelvis 1-2V] Stat Exams 07/14/24 13:03 Completed HIV Combo Stat Lab 07/14/24 12:55 Ordered Hepatitis C Ab Qual. W/ RFX Stat Lab 07/14/24 12:55 Ordered Urinalysis and Microscopic Stat Lab 07/14/24 13:20 Completed Medical Decision Narrative: Lissy Graham is a 43F with a past medical history of lumbar spine laminectomy 3 years ago, bipolar disorder who presents to the emergency department for complaints of lower back pain after a fall. Patient states that yesterday she was walking her dog when she slipped and fell, landing on her right hip. Since then, she has been ambulatory but is had worsening pain in her midline lower back and right lower back that radiates down to her right hip. She denies any head trauma or loss of consciousness. She states that she was prescribed gabapentin 2 weeks ago for left-sided sciatica pain and has been taking that but it has not been helping. She took Tylenol today that did not seem to help. She is worried with her back surgery that that could have caused issues. She denies any genital/perianal numbness, urinary incontinence or retention, fecal incontinence or retention, weakness or numbness of the extremities. On arrival, patient is normotensive, breathing comfortably on room air with appropriate oxygen saturation, heart rate within normal limits, afebrile. Physical exam, stated above, revealed female who appears uncomfortable but in no acute respiratory distress. She has tenderness palpation in her midline lumbar spine and right paraspinal/iliac crest area. No step-offs or deformities are noted. She has a positive straight leg raise on the right. Neurovascular intact distally with 5 out of 5 strength at the hip and dorsi/plantarflexion of the foot. Sensation grossly intact. Differential diagnosis includes, but is not limited to: Spinal fracture, sciatica, muscle strain, pelvic fracture, disc herniation, among others. There is low concern for cauda equina at this time as she has no red flag symptoms. Workup in the emergency department included: CT lumbar spine without contrast, pelvis x-ray. Will treat the patient symptoms with ibuprofen 600 mg oral, 1000 mg Robaxin orally and a lidocaine patch CT and x-ray imaging were interpreted by me personally and demonstrated no acute spinal fractures or malalignment. No appreciable pelvic fractures. See radiology reports for final details. Is felt that patient's symptoms are likely musculoskeletal total in nature versus herniated disc/sciatica. She was encouraged to follow with her primary care physician if symptoms do not improve. Physical therapy was offered, however she states that she had previously had physical therapy for her left leg and has all the exercises at home and will prefer to do them at home. She was encouraged to follow with her primary care physician if she wishes to pursue physical therapy in the future. Return precautions were given for signs and symptoms of cauda equina. All questions were answered. She demonstrated understanding and was in agreement with this plan. She was then discharged from the emergency department in stable condition. Critical Care Critical Care Time Critical Care Time: No
[2024-07-14] MEDS: IBUPROFEN 600 MG TABLET PO (13:06)
[2024-07-14] MEDS: METHOCARBAMOL 500MG TABLET 1000 MG PO (13:06)
[2024-07-14] MEDS: LIDOCAINE 5% TRANSDERMAL PATCH 1 EACH TP (13:07)
[2024-07-14 13:39] LABS: Microscopic, Urine URINE MICROSCOPIC (MICROSCOPIC)
[2024-07-14 13:42] LABS: Appearance,Urine CLEAR (Clear); Bilirubin,Urine Negative (Negative); Blood, Urine Negative (Negative); Color,Urine YELLOW (Yellow); Glucose,Urine (UA) Negative (Negative); Ketones,Urine Negative (Negative); Leukocyte Esterase,Urine Negative (Negative); Nitrate,Urine Negative (Negative); PH,Urine 6.5 (5.0-8.5); Protein,Urine Negative (Negative); Urobilinogen,Urine 0.2 EU/dl (0.2)
[2024-07-14 13:52] LABS: Bacteria,Urine Trace /lpf; WBC,Urine Occasional #/hpf (0-3)
[2024-07-14 14:00] VITALS: BP 142/78; PULSE 78; RESP 18; O2SAT 99
[2024-07-14 14:55] VITALS: BP 142/94; PULSE 74; RESP 16; TEMP 36.7; O2SAT 97
== END 2024-07-14 15:02 | disposition home or self-care (01) ==
PROVIDERS: Emergency Provider Student in an Organized Health Care Education/Training Program; PCP Nurse Practitioner Family
DX: M54.50 Low back pain, unspecified (principal); M25.551 Pain in right hip; Z72.0 Tobacco use; W01.0XXA Fall on same level from slipping, tripping and stumbling without subsequent striking against object, initial encounter; Y93.89 Activity, other specified; Y92.89 Other specified places as the place of occurrence of the external cause
CPT/HCPCS: 72131; 72170; 81001; 99284

== ENCOUNTER 2024-07-26 19:02 | Emergency (ER) | payer OTHER, SELFPAY ==
[2024-07-26 19:54] VITALS: BP 151/96; PULSE 86; RESP 17; TEMP 36.8; O2SAT 98
[2024-07-26] MEDS: LIDOCAINE 2% VISCOUS SOL 15ML UDC 15 ML PO (21:06)
[2024-07-26 21:41] VITALS: BP 150/84; PULSE 86; RESP 18; TEMP 36.8; O2SAT 98
--- NOTE | 2024-07-26 23:50 | ED_ITS ---
Discharge Plan Disposition Patient Disposition: Home, Self-Care Prescriptions Prescriptions: New clindamycin HCl 300 mg capsule 300 mg PO Q8H 7 Days Qty: 21 0RF No Action methocarbamol 500 mg tablet 500 mg PO Q6H Qty: 120 0RF gabapentin 300 mg capsule 300 mg PO TID Referrals Follow up/Referrals: Ivis Serrano APRN [Primary Care Provider] - See instructions Activity Restrictions/Add. Instructions Additional Instructions/Restrictions: You were seen for dental pain. Please see your dentist as soon as possible. Take your antibiotics as prescribed. Clinical Impressions Clinical Impression: Dental caries Stand Alone Forms Stand Alone Forms: Work/School Release Instructions Patient Instructions: DI for Dental Pain Print Language Print Language: Nepalese Discharge ED Provider: Nikos Ryder Adult HPI <MARCELINO Fam - Last Filed: 07/26/24 23:53> General Chief complaint: Dental/Oral Stated complaint: fever, dental pain Time Seen by Provider: 07/26/24 20:22 Mode of Arrival: Ambulatory Source of Information: Patient Description of Symptoms (Recalled from ER Triage Doc. by RN): States she has left jaw pain 9-10 and that her gum is swollen. States she took acetaminophen 1000mg about a hour ago. Denies any recent antibiotics. She states she has felt like she has a fever but has not taken her temperature. She is very tearful. History of Present Illness HPI narrative: Patient presents complaining of left lower dental pain since this morning. She reports that the tooth broke on . She reports that she started to feel achy and have a fever, Tmax 101.2. Denies any URI symptoms. She is able to tolerate p.o. and open her mouth. complaint: dental pain Onset (ago): day(s) (1) Location: mouth Radiation: non-radiation Severity: mild Consistency: constant Relieving factors: none Exacerbating factors: none Associated symptoms: fever/chills Related Data Home Medications ?Medication ?Instructions ?Recorded ?Confirmed gabapentin 300 mg capsule 300 mg PO TID 07/26/24 07/26/24 Previous Rx's ?Medication ?Instructions ?Recorded methocarbamol 500 mg tablet 500 mg PO Q6H #120 tabs 07/14/24 clindamycin HCl 300 mg capsule 300 mg PO Q8H 7 days #21 caps 03/09/25 Allergies Allergy/AdvReac Type Severity Reaction Status Date / Time Penicillins Allergy Unknown Verified 07/26/24 19:58 allergy reaction topiramate (From Topamax) Allergy Unknown Verified 07/26/24 19:58 allergy reaction PFSH <MARCELINO Fam - Last Filed: 07/26/24 23:53> [facility] Disclaimer: The information contained in this section may have been updated after the patient was seen, as this information can be updated by other users. Medical History (Updated 07/26/24 @ 20:33 by MARCELINO Fam) Back pain Urinary tract infection Migraine Surgical History History of tubal ligation Social History Smoking Status: Current every day smoker alcohol intake: never current occupational status: employed Travel in the last 8 weeks: None Have you lived/traveled outside US in past 30 days?: No Contact w/someone who lives/traveled outside US past 30 days?: No Exposure to someone with infectious disease in past 14 days?: No Do you have a fever (greater than 100.4 F or 38 C)?: No Have you tested positive for COVID-19: No Exposed to someone with COVID-19 in past 14 days?: No Do you have a sore throat?: No Do you have a cough?: No Do you have any weakness?: No Do you have any diarrhea?: No Are you experiencing any unusual bleeding?: No Do you have any muscle aches/pain?: No Do you have any abdominal pain?: No Are you experiencing loss of taste or smell?: No <MARCELINO Fam - Last Filed: 07/26/24 23:53> ROS Obtained: Yes Systems reviewed as appropriate & no additional complaints e xcept as documented Physical Exam <MARCELINO Fam - Last Filed: 07/26/24 23:53> General General appearance: alert and in no apparent distress Head Head exam: atraumatic and normocephalic Eye Eye exam: Present normal appearance and EOMI ENT ENT exam: Present other (left lower dental caries and tenderness to tooth 20, no abscess or edema noted. No evidence of Ludwigs angina, able to protrude tongue and no submental tenderness ) Chest Chest inspection: Present symmetric chest wall rise Respiratory Respiratory exam: Present normal lung sounds bilaterally; Absent wheezes or stridor Cardiovascular Cardiovascular exam: Present regular rate and normal rhythm; Absent systolic murmur Extremities Exam Extremities exam: Present full ROM Neurological Exam Neurological exam: Present alert and oriented X3 Psychiatric Psychiatric exam: Present normal affect and normal mood Skin Skin exam: Present warm, dry and intact Medical Decision Making <MARCELINO Fam - Last Filed: 07/26/24 23:53> Medical Records Screening: Per USPSTF and CDC recommendations, given the prevalence of disease in our region, it is our hospital?s policy to screen for HIV and viral Hepatitis for all patients aged 18 and over and those with ongoing risk factors. Geoffrey Inquiry Pt receiving controlled substance: No Vital Signs: 07/26/24 19:54 07/26/24 21:41 Temperature 98.3 F 98.3 F Temperature Source Oral Oral Pulse Rate 86 Pulse Rate [Right Brachial] 86 Respiratory Rate 17 18 Blood Pressure 150/84 H Blood Pressure [Right Arm] 151/96 H Blood Pressure Mean [Right Arm] 114 Blood Pressure Source [Right Arm] Automatic Cuff Blood Pressure Position [Right Arm] Sitting 02 Sat by Pulse Oximetry 98 Oxygen Delivery Method Room Air Room Air Orders (Tests/Meds): ED MEDICATIONS Discontinued Medications Generic Name Dose Route Start Last Admin Trade Name Freq PRN Reason Stop Dose Admin Lidocaine HCl 15 ml 07/26/24 20:32 07/26/24 21:06 Lidocaine 2% Viscous Camilla 15ml Udc PO 07/26/24 20:33 15 ml ONCE ONE Administration Medical Decision Narrative: 43-year-old female presents with dental pain. She reports that she has had a fever. No respiratory symptoms associated with her fever. She does have dental caries on exam however no evidence of any fluid collection or edema. No evidence of Ke angina. Started on clindamycin and offered a dental block versus dental balls, she does opt for the dental balls. Advised to follow-up with her dentist. <Nikos Ryder MD - Last Filed: 07/26/24 23:56> Vital Signs: 07/26/24 19:54 07/26/24 21:41 Temperature 98.3 F 98.3 F Temperature Source Oral Oral Pulse Rate 86 Pulse Rate [Right Brachial] 86 Respiratory Rate 17 18 Blood Pressure 150/84 H Blood Pressure [Right Arm] 151/96 H Blood Pressure Mean [Right Arm] 114 Blood Pressure Source [Right Arm] Automatic Cuff Blood Pressure Position [Right Arm] Sitting 02 Sat by Pulse Oximetry 98 Oxygen Delivery Method Room Air Room Air Orders (Tests/Meds): ED MEDICATIONS Discontinued Medications Generic Name Dose Route Start Last Admin Trade Name Loc PRN Reason Stop Dose Admin Lidocaine HCl 15 ml 07/26/24 20:32 07/26/24 21:06 Lidocaine 2% Viscous [place] 15ml Udc PO 07/26/24 20:33 15 ml ONCE ONE Administration Medical Decision Narrative: 43-year-old female presents with dental pain. She reports that she has had a fever. No respiratory symptoms associated with her fever. She does have dental caries on exam however no evidence of any fluid collection or edema. No evidence of Ke angina. Started on clindamycin and offered a dental block versus dental balls, she does opt for the dental balls. Advised to follow-up with her dentist. I was consulted by the AZUL, and we discussed the complexity of the problems being addressed.I approved the treatment and management plan for this patient?s care in the Emergency Department, thus performing a substantive portion of the medical decision making.Signed, Nikos Ryder MD [facility] Critical Care <MARCELINO Fam - Last Filed: 07/26/24 23:53> Critical Care Time Critical Care Time: No
== END 2024-07-26 21:42 | disposition home or self-care (01) ==
PROVIDERS: Emergency Provider Emergency Medicine; PCP Nurse Practitioner Family
DX: K02.9 Dental caries, unspecified (principal); R50.9 Fever, unspecified; K08.89 Other specified disorders of teeth and supporting structures; Z72.0 Tobacco use
CPT/HCPCS: 99283

== ENCOUNTER 2025-02-12 09:59 | Emergency (ER) | payer OTHER, SELFPAY ==
[2025-02-12 10:09] VITALS: BP 128/93; PULSE 87; RESP 15; TEMP 36.8; O2SAT 100; BMI 31.2
--- NOTE | 2025-02-12 10:09 | ECG_ITS ---
APPROVED REPORT Exam: Resting ECG HR:83 bpm ECG Measurements Heart Rate 83 AXES OR 154 P 61 QRSd 85 QRS 85 QT 346 T 12 QTc 386 Conclusion Normal sinus rhythm Normal axis Normal intervals No STEMI Electronically signed by : Tavares Rosas, 02/12/2025 16:30:00
[2025-02-12 10:30] VITALS: BP 119/76; PULSE 73; O2SAT 97
[2025-02-12 10:49] LABS: Hematocrit 38.5 % (37.0-47.0); Hemoglobin 13.2 g/dL (12.2-16.2); Immature Granulocytes % 0.2 %; Mean Corpuscular HGB Conc 34.3 g/dL (31.8-35.4); Mean Corpuscular Hemoglobin 32.0 pg (27.0-31.2); Mean Corpuscular Volume 93.2 fl (81-99); Nucleated Red Blood Cells % 0 %; Platelet Count 296 K/mm3 (142-424); Red Blood Count 4.13 M/mm3 (4.20-5.40); Red Cell Distribution Width-SD 42.2 fL; White Blood Count 5.9 K/mm3 (4.8-10.8)
--- NOTE | 2025-02-12 10:50 | CT_ITS ---
FINAL REPORT TECHNIQUE: Thin section axial images were obtained from skull base to vertex without contrast. Coronal reconstruction images were obtained from the axial data. Exam was performed using dose reduction techniques such as automated exposure control, adjustment of the mA and kV according to patient size, and use of iterative reconstruction technique. CLINICAL HISTORY: Seizure, fall COMPARISON: None FINDINGS: There is no mass effect or midline shift. There is no hydrocephalus. There is no intracranial hemorrhage. The posterior fossa is without acute abnormality. The basilar cisterns are preserved. The soft tissues are without acute abnormality. No acute osseous abnormality is identified. IMPRESSION: No acute intracranial abnormality. Reviewed, Interpreted and Dictated by Laura Rodriguez MD Transcribed by Bebe Schreiber Authenticated and . [facility]
--- NOTE | 2025-02-12 10:50 | CT_ITS ---
FINAL REPORT TECHNIQUE: Thin section axial images were obtained through the cervical spine without contrast. Multiplanar reconstruction images were obtained from the axial data. Exam was performed using dose reduction techniques. CLINICAL HISTORY: Fall, seizure COMPARISON: None FINDINGS: There is no acute fracture or acute malalignment of the cervical spine. There is no evidence of unilateral or bilateral facet lock. Craniocervical junction is intact. Vertebral body height is preserved. No significant degenerative disc disease. No acute paraspinal abnormality is identified. IMPRESSION: No acute osseous abnormality of the cervical spine. Reviewed, Interpreted and Dictated by Laura Rodriguez MD Transcribed by Bebe Schreiber Authenticated and [facility]
[2025-02-12 10:54] LABS: Albumin Level 3.7 g/dl (3.5-5.0); Chloride 103 mmol/L (98-107); Potassium 3.7 mmoL/L (3.5-5.1); Sodium 137 mmol/L (136-145)
[2025-02-12 10:57] LABS: Alanine Aminotransferase 15 U/L (12-78); Albumin/Globulin Ratio 1.4 (1.1-1.8); Alkaline Phosphatase 66 U/L (38-126); Anion Gap 6.7 mEq/L (5-15); Aspartate Amino Transferase 30 U/L (14-36); Bilirubin,Total 0.3 mg/dl (0.2-1.3); Calcium 8.9 mg/dl (8.4-10.2); Carbon Dioxide 31 mmol/L (22.0-30.0); Creatine Kinase 104 U/L (30-135); Globulin 2.7 g/dL (1.3-3.2); Glucose 104 mg/dl (74-100); Total Protein,Serum 6.4 g/dl (6.3-8.2)
[2025-02-12 11:02] LABS: Blood Urea Nitrogen 14 mg/dl (7-17); Creatinine Clearance Estimated 84 mL/min (50-200); Creatinine,Serum 1.00 mg/dl (0.52-1.04); Estimated Glomerular Filt Rate 61 ml/min (>60); GFR (African American) 74 ML/MIN (>60)
[2025-02-12] MEDS: LACTATED RINGERS 1000ML 1,000 ML 999 ML IV (11:07)
[2025-02-12 11:30] VITALS: BP 110/67; PULSE 74; RESP 13; O2SAT 100
[2025-02-12 11:56] LABS: Hepatitis C Ab Qual. W/ RFX NEGATIVE (Negative)
[2025-02-12 12:01] VITALS: BP 106/50; PULSE 64; O2SAT 99
[2025-02-12 12:30] VITALS: BP 98/54; RESP 12
--- NOTE | 2025-02-12 13:18 | HMH.EDGENADL ---
Discharge Plan Disposition Patient Disposition: Home, Self-Care Condition: Good Prescriptions Prescriptions: No Action methocarbamol 500 mg tablet 500 mg PO Q6H Qty: 120 0RF gabapentin 300 mg capsule 300 mg PO TID clindamycin HCl 300 mg capsule 300 mg PO Q8H 7 Days Qty: 21 0RF Referrals Follow up/Referrals: Ivis Serrano APRN [Primary Care Provider, Medical] - See instructions Activity Restrictions/Add. Instructions Additional Instructions/Restrictions: Please return if any new or worsening symptoms. Clinical Impressions Clinical Impression: Psychogenic nonepileptic seizure, Neck pain Instructions Patient Instructions: DI for Seizure (Not Epilepsy/Seizure Disorder) Print Language Print Language: Estonian Discharge ED Provider: Tavares Rosas Adult HPI General Chief complaint: Seizure Stated complaint: seizure Time Seen by Provider: 02/12/25 10:41 Mode of Arrival: Wheelchair Source of Information: Patient Description of Symptoms (Recalled from ER Triage Doc. by RN): pt was witnessed having a seizure that lasted approx 45 seconds today. She does not take any medicaitons but has a hx of multiple seizures in the past. History of Present Illness HPI narrative: This is a 44-year-old female patient, with past medical history of psychogenic nonepileptic seizures, who is presenting to the emergency department today for evaluation of seizures. Patient works in the kitchen here at the hospital. She reportedly began feeling lightheaded and then began experiencing seizure-like activity and fell and hit her head on the ground. Coworkers witnessed this event and stated that seizing activity lasted for around 45 seconds. By the time that medical staff arrived the patient had regained consciousness and was alert and oriented x 4. She is reporting posterior head pain as well as posterior neck pain. She has had no difficulty with ambulation, no vision changes, no nausea or vomiting. She tells me that she is currently not on any antiepileptics. She also is not on any medications for anxiety or depression, but she does see a therapist in the outpatient setting. Related Data Home Medications ?Medication ?Instructions ?Recorded ?Confirmed gabapentin 300 mg capsule 300 mg PO TID 07/26/24 07/26/24 Previous Rx's ?Medication ?Instructions ?Recorded methocarbamol 500 mg tablet 500 mg PO Q6H #120 tabs 07/14/24 clindamycin HCl 300 mg capsule 300 mg PO Q8H 7 days #21 caps 07/26/24 Allergies Allergy/AdvReac Type Severity Reaction Status Date / Time Penicillins Allergy Unknown Verified 07/26/24 19:58 allergy reaction topiramate (From Topamax) Allergy Unknown Verified 07/26/24 19:58 allergy reaction PFSH PFS Disclaimer: The information contained in this section may have been updated after the patient was seen, as this information can be updated by other users. Medical History (Updated 02/12/25 @ 13:19 by Tavares Rosas DO) Back pain Urinary tract infection Migraine Surgical History History of tubal ligation Social History Smoking Status: Unknown if ever smoked alcohol intake: never current occupational status: employed Travel in the last 8 weeks?: None Have you lived/traveled outside US in past 30 days?: No Contact w/someone who lives/traveled outside US past 30 days?: No Exposure to someone with infectious disease in past 14 days?: No Do you have a fever (greater than 100.4 F or 38 C)?: No Have you tested positive for COVID-19?: No Exposed to someone with COVID-19 in past 14 days?: No Do you have a sore throat?: No Do you have a cough?: No Do you have any weakness?: No Do you have any diarrhea?: No Are you experiencing any unusual bleeding?: No Do you have any muscle aches/pain?: No Do you have any abdominal pain?: No Are you experiencing loss of taste or smell?: No ROS Obtained: Yes Systems reviewed as appropriate & no additional complaints except as documented Physical Exam General General appearance: other (See MDM) Respiratory Respiratory exam: Present other (See MDM) Cardiovascular Cardiovascular exam: Present other (See MDM) Neurological Exam Neurological exam: Present other (See MDM) Medical Decision Making Medical Records Medical records reviewed: Yes I reviewed the patient's medical records. Screening: Per USPSTF and CDC recommendations, given the prevalence of disease in our region, it is our hospital?s policy to screen for HIV and viral Hepatitis for all patients aged 18 and over and those with ongoing risk factors. Geoffrey Inquiry Pt receiving controlled substance: No Geoffrey was queried for this patient: No Vital Signs: 02/12/25 10:09 02/12/25 10:30 02/12/25 11:30 Temperature 98.3 F Temperature Source Oral Pulse Rate 73 74 Pulse Rate [Right] 87 Respiratory Rate 15 13 Blood Pressure 119/76 110/67 Blood Pressure [Right Arm] 128/93 H Blood Pressure Mean [Right Arm] 104 02 Sat by Pulse Oximetry 100 97 100 02/12/25 12:01 02/12/25 12:30 02/12/25 13:20 Temperature 98.1 F Temperature Source Pulse Rate 64 67 Pulse Rate [Right] Respiratory Rate 12 15 Blood Pressure 106/50 L 98/54 L 98/57 L Blood Pressure [Right Arm] Blood Pressure Mean [Right Arm] 02 Sat by Pulse Oximetry 99 Lab Data Lab Results 02/12/25 10:15: WBC 5.9, RBC 4.13 L, Hgb 13.2, Hct 38.5, MCV 93.2, MCH 32.0 H, MCHC 34.3, RDW 12.2, Plt Count 296, MPV 9.7, Neut % (Auto) 43.5, Lymph % (Auto) 43.7, [place] % (Auto) 4.6, Eos % (Auto) 6.8, Baso % (Auto) 1.2, Neut # (Auto) 2.6, Lymph # (Auto) 2.6, [place] # (Auto) 0.3, Eos # (Auto) 0.4, Baso # (Auto) 0.1, Sodium 137, Potassium 3.7, Chloride 103, Carbon Dioxide 31 H, Anion Gap 6.7, BUN 14, Creatinine 1.00, Estimated Creat Clear 84, Estimated GFR 61, Est GFR ( Amer) 74, Glucose 104 H, Calcium 8.9, Total Bilirubin 0.3, AST 30, ALT 15, Alkaline Phosphatase 66, Total Creatine Kinase 104, Total Protein 6.4, Albumin 3.7, Globulin 2.7, Albumin/Globulin Ratio 1.4, HCV Ab JASMEET w/Rflx PCR Qn Negative, HIV Ag/Ab Combo Qual Negative 02/12/25 10:15 02/12/25 10:15 Orders (Tests/Meds): ED MEDICATIONS Discontinued Medications Generic Name Dose Route Start Last Admin Trade Name Freq PRN Reason Stop Dose Admin Lactated Ringer's 1,000 mls @ 999 mls/hr 02/12/25 10:42 02/12/25 12:07 Lactated Ringer's 1000 Ml Bag IV 02/12/25 11:42 Infused .Q1H1M ONE Infusion ORDERS Category Date Time Status CT cervical spine wo con Stat Cat Scan 02/12/25 10:[address] head/brain wo con Stat Cat Scan 02/12/25 10:50 Completed CBC w/Auto Diff [Complete Blood Count Auto Diff] Stat Lab 02/12/25 10:15 Completed CK [Creatine Kinase] Stat Lab 02/12/25 10:15 Completed CMP [Comprehensive Metabolic Panel] Stat Lab 02/12/25 10:15 Completed HIV Combo Stat Lab 02/12/25 10:15 Completed Hepatitis C Ab Qual. W/ RFX Stat Lab 02/12/25 10:15 Completed Medical Decision Narrative: In summary, this is a 44 year old female patient who presented after a seizure while at work, in which she subsequently fell to the ground and hit her head. The patient's comorbidities include a history of psychogenic nonepileptic seizures, which are not at goal therapy and increase her risk of morbidity. On initial evaluation of the patient she was resting comfortable in no acute distress and was nontoxic in appearance. She is hemodynamically stable, saturating well on room air, and is neurologically intact. On examination, she is appropriately alert and interactive with a GCS of 15. Heart and lungs are clear to auscultation. She has 5/5 strength in her extremities and normal sensation throughout. On trauma survey, she has some tenderness to the posterior aspect of the head and some tenderness over the midline of the cervical spine. Thoracic and lumbar spine are nontender. She has no deformities of the extremities, and her pelvis is stable. Differential includes psychogenic seizure, electrolyte derangement, cardiac arrhythmia, among others. Workup was initiated with hematologic labs, an EKG, and CT scans of the head and cervical spine to assess for related traumatic injuries. EKG was personally interpreted by me and demonstrates normal sinus rhythm, normal rate, normal axis, normal intervals, and no STEMI. No evidence of cardiac arrhythmia. Labs were personally interpreted by me and demonstrate no acute findings. I have personally interpreted her CT head and I do not appreciate any large intracranial hemorrhages. Official radiology read of the head CT and cervical CT demonstrates no acute findings. We have treated the patient with one liter of lactated ringers. On repeat reassessment she is resting comfortably in no acute distress. We have discussed follow up with her therapist and the importance of pursuing psychiatry evaluation. At this time all questions have been answered and all parties are agreeable with the decision to discharge home. Critical Care Critical Care Time Critical Care Time: No
[2025-02-12 13:20] VITALS: BP 98/57; PULSE 67; RESP 15; TEMP 36.7; O2SAT 99
== END 2025-02-12 13:26 | disposition home or self-care (01) ==
PROVIDERS: Emergency Provider Student in an Organized Health Care Education/Training Program; PCP Nurse Practitioner Family
DX: F44.5 Conversion disorder with seizures or convulsions (principal); M54.2 Cervicalgia; R51.9 Headache, unspecified
CPT/HCPCS: 70450; 72125; 80053; 82550; 85025; 86803; 87389; 93005; 96360; 99284; 99285; J7120

== ENCOUNTER 2025-02-16 10:37 | Outpatient (CLI) | payer OTHER, SELFPAY ==
[2025-02-16 15:02] LABS: Influenza A, PCR Not Detected (NotDetected); Influenza B, PCR Not Detected (NotDetected)
[2025-02-16 16:27] LABS: Coronavirus 19, PCR Detected (NotDetected)
--- OUTSIDE RECORDS SUMMARY | 2025-02-17 12:13 | XMS_ITS | Encounter Summary ---
Author Organization [employer] ([place], [place], [place], [place]) Address [address] [place] [address] Care Team Providers Care Senior Web Developer Name Role Phone Unavailable Primary Care Provider Unavailabl e Encounter Details Date Type Department Care Team (Late st Contact Info) Description 06/08/2020 Transcribed Document [facility] [place] [facility] [place] [address] ProviderLi MD [address] [place] [address] [id number] Social History Tobacco Use Types Packs/Day Years Used Date Smoking Tobacco: Never Assessed Comments Unknown Sex and Gender Information Value Date Recorded Sex Assigned at Not on file Legal Sex Female 5:07 PM CDT Gender Identity Not on file Sexual Orientation Not on file documented as of this encounter Miscellaneous Notes * Cerner Conversion Note - Li Calderon MD - 06/08/2020 12:51 PM POWDER COAT PAINTER DATE OF PROCEDURE: 06/08/2020 SURGEON: Karley Crawley MD, CARMELINA Pain Certified PROCEDURE: Lumbar epidural steroid injection LEVEL: L4-5. SEDATION: We did not give any sedation. PREPROCEDURE PAIN LEVEL: 8/10. POSTPROCEDURE PAIN LEVEL: DIAGNOSIS: Lumbosacral radiculopathy. PROCEDURE SUMMARY: After explaining the risks and benefits of the procedure, an informed consent was obtained. The patient was transferred to the procedure room and placed on the table in the prone position. Noninvasive monitors were applied by the procedural room nurse and monitored per standard protocol. Prior to beginning the procedure, a timeout was performed. The lumbar area was then prepped and draped in sterile fashion. The skin and tissues overlying the specific target levels were anesthetized with 1% lidocaine mixed with bicarbonate, using a 25-guage needle. An 18-gauge Tuohy needle was advanced by the [id number]-[id number] technique under direct fluoroscopic guidance into the posterior epidural space without difficulties. Aspiration was negative for blood and/or CSF. The epidural needle position was confirmed in the lateral view and also with injection of 2 mL of Isovue which showed good cephalad and caudad spread in the epidural space. Intravascular and intrathecal injection was excluded. There was no paresthesia during needle placement. A total of 10 mL of volume was injected containing 80 mg of Depo-Medrol and 1 mL of bupivacaine 0.25%. The remaining volume includes preservative free normal saline. The needle was then withdrawn and a dressing was used to cover the injection site. The patient tolerated the procedure well and without incident. Upon completion of the procedure, the patient was transferred to the recovery area in stable condition. The patient was monitored per protocol and discharged from the clinic neurologically intact and with appropriate discharge instructions. The patient has been instructed to contact my office with any questions or difficulties. Pre and post procedure pain levels are documented in the chart. Total fluoroscopy time is 13 seconds. I am going to see the patient after one month to re-evaluate her. /[id number] Karley Crawley MD, CARMELINA Pain Certified LUIS MANUEL/JANUARY / LUIS MANUEL / MODL /[id number] documented in this encounter Plan of Treatment Not on file documented as of this encounter Visit Diagnoses Not on filedocumented in this encounter
--- OUTSIDE RECORDS SUMMARY | 2025-02-17 12:13 | XMS_ITS | Referral Summary ---
Author Organization [employer] ([place], [place], [place], [place]) Address [address] [place] [address] Care Team Providers Care Roll Forger Name Role Phone Unavailable Primary Care Provider Unavailabl e Social History Tobacco Use Types Packs/Day Years Used Date Smoking Tobacco: Never Assessed Comments Unknown Sex and Gender Information Value Date Recorded Sex Assigned at Not on file Legal Sex Female 5:07 PM CDT Gender Identity Not on file Sexual Orientation Not on file Plan of Treatment Not on file
--- OUTSIDE RECORDS SUMMARY | 2025-02-17 12:13 | XMS_ITS | Encounter Summary ---
Author Organization [employer] ([place], [place], [place], [place]) Address [address] [place] [address] Care Team Providers Care Cafeteria Or Lunchroom Checker Name Role Phone Unavailable Primary Care Provider Unavailabl e Encounter Details Date Type Department Care Team (Late st Contact Info) Description 05/25/2020 Transcribed Document [facility] [place] [address] ProviderLi MD [address] [place] [id number] Social History Tobacco Use Types Packs/Day Years Used Date Smoking Tobacco: Never Assessed Comments Unknown Sex and Gender Information Value Date Recorded Sex Assigned at Not on file Legal Sex Female 5:07 PM CDT Gender Identity Not on file Sexual Orientation Not on file documented as of this encounter Miscellaneous Notes * Cerner Conversion Note - Li ProviderMD - 05/25/2020 7:01 AM AUTOMOBILE DETAILER DATE OF ADMISSION: 05/24/2020 This is 39-year-old female with a chief complaint of chronic lower back pain radiating to both lower extremities since June 2019 which became worse by January 2020. The patient describes her pain as a constant combination of burning, tender, sharp pain, localized in lower back and radiated to both lower extremities. Her right side radiated all the way down to the tip of her toes, especially on the right leg more than the left. She has some tingling and numbness in the right more than the left as well as she noted some weakness. However, the patient denied any major change in her bowel or bladder control. Her average pain is 7/10 and the pain affects her general activity, enjoyment of life, and a scale of 8/10. The pain increased by sitting, bending forward, lifting, driving, twisting. The pain decreased by applying TENS unit, icing, heat, exercise, [id number] medication, and opioid medication. However, the patient did not get much benefit of physical therapy and oral steroids. The patient noticed that she had some back pain in June 2019 without any specific injury or damage. However, the pain started getting worse and by January 2020, she started feeling radiation of the pain to the right lower extremity more than the left with tingling and numbness. She saw her family physician, Shirin Barroso, who evaluated her, sent her for MRI and then referred her to see Dr. Marco Dale. Dr. Marco Dale evaluated her too and sent her to neurologist for nerve conduction study and now she is referred to our clinic for evaluation of her possible interventional injected therapy. ALLERGIES: Penicillin. CURRENT MEDICATIONS: 1. Gabapentin. 2. Fluoxetine. 3. Tylenol. PAST SURGICAL HISTORY: She had tubal ligation. PAST MEDICAL HISTORY: Epilepsy and seizures, depression, drug abuse, and migraine headaches. FAMILY HISTORY: Diabetes, high blood pressure, kidney disease, cancer, arthritis, rheumatoid arthritis, asthma, lung problem, depression. 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 Smokes half pack a day for 20 years. Denied drinking alcohol. She used illegal drugs in the past, cocaine and marijuana over 10 years and she stops doing that. She had GED. She is single. She has 3 children. REVIEW OF SYSTEMS: MUSCULOSKELETAL: Joint stiffness, limping. NEUROLOGY: Headache, numbness, difficulty walking. PSYCHIATRIC: Depression, anxiety, sleep disturbance, current counseling. Constitutional, respiratory, cardiovascular, ophthalmology, gastrointestinal, genitourinary, ENT, musculoskeletal, integumentary, neurology, psychiatry, endocrine, hematology were unremarkable. PHYSICAL EXAMINATION: VITAL SIGNS: Blood pressure 146/86, heart rate is 92, temperature 97.9, respirations 16, saturation 97%. Height 5 feet 1 inch, weight 189. Visual analogue scale of pain 7/10. The patient is alert, oriented to people, time, place. Patient has mild to moderate pain behavior and discomfort. The rest of physical examination including HEENT, heart, lungs and abdomen were unremarkable. DIRECTED PHYSICAL EXAMINATION: The patient has antalgic gait to the right side with difficulty walking on heel and toes on the right side. Flexion and extension of the trunk are moderately limited causing more pain in the flexion compared to extension. Palpation of her back reveals [id number] tenderness on the right lumbosacral facet area more than the left with facet loading. NEUROLOGICAL: Cranial nerves 2 to 12 were unremarkable. Motors 5/5 bilateral symmetrical in the upper and lower extremities. Deep tendon reflex is +2/4 on the right knee, +1/4 in left knee, +1/4 right ankle, +2/4 in left ankle. Sensory decreased on the right lower extremity more consistent with L4-5, L5-S1 distribution. Straight leg raise is positive on the right side more than the left side. The nurse's note and OMAR were reviewed and evaluated. We did chronic pain psychology evaluation in our clinic with SOAZUL-R, which is documented in the chart. The patient has an x-ray to the hip bilaterally, showed minimal degenerative changes in the pelvis. The patient has a nerve conduction study that was done in March 21, 2020, showed normal and no electrodiagnostic evidence of right lumbar radiculopathy. The patient has an MRI in February 11, 2020, showed at L4-5, small central protrusion with mild central stenosis. ASSESSMENT: 1. Chronic lower back pain, most likely secondary to degenerative disk disease. 2. Symptoms correlated with lumbosacral radiculopathy, more consistent with L4-5 distribution. 3. Lumbosacral spondylosis. PLAN: I had a lengthy discussion with the patient in regard to her condition, the patient clearly had some symptoms of her lower back pain since June 2019 and by January 2020, the pain started radiated to the lower extremities with clear radicular pain more consistent with L4-5 distribution. The patient did not get any benefit of any conservative measures and I think the patient will get some benefit from lumbar epidural steroid injection. I am going to schedule the patient for translaminar epidural steroid injection targeting the level L4-5 to see how the patient is doing. Once we get the patient some help and relief, we will start her on intense physical therapy to improve the range of movement of back and lower extremities. However, if the patient does not get any major benefit, I might send her back to see Dr. Marco Dale to re-evaluate her for any surgical intervention. Thank you for letting me participate in the management of this patient. I will keep you informed of this patient's progress. If you have any questions or you need further information, please do not hesitate to contact our clinic. /[id number] Karley Crawley MD, CARMELINA Pain Certified LUIS MANUEL/JANUARY / LUIS MANUEL / MODL CC: Dr. Shirin Dale MD Electronically signed by [facility], [facility] Conversion Venipuncturist Cerner at 09/07/2022 7:22 PM CDT documented in this encounter Plan of Treatment Not on file documented as of this encounter Visit Diagnoses Not on filedocumented in this encounter
--- OUTSIDE RECORDS SUMMARY | 2025-02-17 12:13 | XMS_ITS | Clinical Summary ---
Author Organization [employer] ([place], [place], [place], [place]) Address [address] [place] [address] Care Team Providers Care Director Global Medical Affairs Name Role Phone Unavailable Primary Care Provider [...]
== END 2025-02-16 23:59 | disposition home or self-care (01) ==
LOC: LAB.DROPOF 02-17 10:57
PROVIDERS: PCP Student in an Organized Health Care Education/Training Program; Visit Provider Student in an Organized Health Care Education/Training Program
DX: J02.9 Acute pharyngitis, unspecified (principal)
CPT/HCPCS: 87636